=== PATIENT | female | born 1950 | race Caucasian/White ===

== ENCOUNTER 2016-12-10 20:55 | Emergency (ER) | payer OTHER ==
[2016-12-10 21:06] VITALS: BP 136/60; BMI 26.5
[2016-12-10] MEDS ORDERED: TORADOL 60 MG VIAL IM ONE (22:10)
[2016-12-10] MEDS ORDERED: DIFLUCAN PO ONE (22:11)
[2016-12-10] MEDS ORDERED: DIFLUCAN ONE (22:13)
[2016-12-10] MEDS ORDERED: TORADOL 60 MG VIAL ONE (22:13)
--- NOTE | 2016-12-10 22:31 | DR.GENAD ---
HPI - PCP Primary Care Physician: Jose - HPI Comment HPI Comment: SICK FOR 3 WEEKS WITH COUGH AND THRUSH. NYSTATIN IS NOT HELPING MOUTH. COMPLETED ANTIBIOTIC GIVEN BUT STILL HAVE PRODUCTIVE COUGH WITH THICK YELLOW SPUTUM. NO FEVER. MOUTH IS BURNING. - Complaint/Symptoms Chief Complaint Doctors Comments: MOUTH PAIN, COUGH AND CHEST PAIN. Chief Complaint:: "I was on antibiotics for about 2-3 weeks about my tongue. I have had to drink to different medications. Neither has helped. I have also been coughing really bad and yellow stuff is coming up. I still have white on my tongue and throat though. My gums are also really sore." Self Treatment fo Chief Complaint: Prescribed medications that she cannot recall. - Nurses notes reviewed Nurses Notes Review: Yes - Source History Provided: Patient - Mode of Arrival Mode of Arrival: Ambulatory - Timing Onset of Chief Complaint: 11/19/16 Came on: Gradually - Duration Duration: Constant Duration: Weeks - Severity Severity: Moderate PMH - PMH Past Medical History: Yes Past Medical History: Arthritis Past Surgical History: Yes Surgical History: Hysterectomy, Tonsillectomy, Other - Family History History of Family Medical Conditions: No - Social History Does patient currently use any type of tobacco product: Yes Have you used tobacco products in the last 12 months: Yes Type of Tobacco Use: Cigarettes How many years tobacco product used: 40 Does any household member use tobacco: No Alcohol Use: None Do you use any recreational Drugs:: No Lives With: Alone Lives Where: Home - infectious screening In the last 2 months have you had wt loss of >10#?: NO Have you had fever, night sweats or hemotysis?: Yes Have you traveled outside the country in the last 6 months?: No Isolation: Standard ROS - Review of Systems Constitutional: Weakness, Fatigue, Loss of Appetite. negative: Chills, Fever Eyes: No Symptoms Reported. negative: Eye Pain, Discharge ENTM: Ear Pain, Nose Discharge, Nose Congestion, Mouth Pain, Mouth Swelling ( WHITISH LESIONS PRESENT IN MOUTH. PALATE INFLAME.), Throat Pain Respiratoy: Productive Cough, Short of Breath, Wheezing, Hemoptysis Cardiovascular: Chest Pain Gastrointestinal/Abdominal: No Symptoms Reported Genitourinary: No Symptoms Reported Neurological: Headache, Weakness, Dizziness Musculoskeletal: Muscle Pain Integumentary: No Symptoms Reported Hematologic/Lymphatic: No Symptoms Reported Endocrine: No Symptoms Reported All Other Systems: Reviewed and Negative PE - Vital Signs Vitals: Temperature 98.9 F Pulse Rate 73 Respiratory Rate 16 Blood Pressure 136/60 O2 Sat by Pulse Oximetry 97 - General Limitations: No Limitations General Appearance: Alert - Head Head Exam: Normal Inspection - Eyes Eye exam: Normal Appearance - ENT ENT Exam: Normal External Ear Exam, Other (TONGUE, BUCAL MUCOSA AND PALATE INFLAME. GUM INFLAME AND WHITE APPEARING.) TM/Canal Exam: Bilateral Normal Nose Exam: Normal Nose Exam Mouth Exam: Normal Inspection Throat Exam: Normal Inspection - Neck Neck Exam: Trachea Midline - Chest Chest Inspection: Symmetric Chest Wall Rise - Respiratory Respiratory Exam: negative: Chest Wall Tenderness Respiratory Exam: Bilateral Rhonchi, Upper Rhonchi, Lower Rhonchi - Cardiovascular Cardiovascular Exam: Regular Rate, Normal Rhythm, Normal Heart Sounds - Abdominal Exam Abdominal Exam: Normal Bowel Sounds, Soft. negative: Tenderness - Extremities Extremities Exam: Normal Inspection - Back Back Exam: Paraspinal Tenderness - Neurologic Neurological Exam: Alert, Oriented X3, Normal Gait. negative: Motor Sensory Deficit - Psychiatric Psychiatric Exam: Anxious - Skin Skin Exam: Normal Color MDM - Differential Diagnosis Differential Diagnosis: PNEUMONIA, BRONCHITIS, THRUSH, STOMATIS Course - Treatment Treatment: SEE ORDERS - Education/Counseling Education/Counseling: Patient, Education Educated On: Treatment, Diagnosis, Needs for Follow Up ROR - XRAY XRAY Interpreted by: Radiologist XRAY Findings: REPORT DISCUSS WITH PATIENT. - Diagnosis Discharge Problem: Bronchitis, Stomatitis, Thrush - Discharge Plan Disposition: 01 HOME, SELF-CARE Condition: Stable Prescriptions: Fluconazole [Diflucan] 100 mg PO DAILY #7 tab Sulfamethoxazole-Trimethoprim [BACTRIM DS TAB 800/160 MG *] 1 tab PO BID #20 tab - Follow ups/Referrals Follow ups/Referrals: ZHANNA CRUZ [Primary Care Provider] - 2 days - Instructions Instructions: Thrush, Adult, Stomatitis, [id number], Acute Bronchitis Additional Instructions: RETURN TO ED IF WORSE.
--- NOTE | 2016-12-11 01:44 | RAD ---
AP Chest Indication: Cough Comparison: None available Findings: The trachea is midline. The cardiac silhouette is unremarkable. The lungs are clear without focal infiltrate or effusion. The bony thorax is unremarkable. IMPRESSION: 1. No acute cardiopulmonary abnormality. Reported By:
== END 2016-12-10 23:00 | disposition home or self-care (01) ==
LOC: ER 21:16
DX: J40 Bronchitis, not specified as acute or chronic (principal); K12.1 Other forms of stomatitis; B37.89 Other sites of candidiasis
CPT/HCPCS: 71010; 96372; 99282; J1885

== ENCOUNTER → 2017-01-07 | Outpatient (CLI) | payer OTHER ==
[2016-12-10 21:06] VITALS: BP 136/60
[~2017-01-07] MED LIST: NS 100 ML IV 100 ML IV ONE
[2017-01-07 10:30] LABS: CREATININE 0.78 mg/dL (0.55-1.02)
--- NOTE | 2017-01-09 11:47 | CT ---
CTA OF THE ABDOMEN AND PELVIS AND BILATERAL LOWER EXTREMITY RUNOFF WITHOUT AND WITH CONTRAST CLINICAL INDICATION: Atherosclerotic artery disease with claudication TECHNIQUE: Written informed consent was obtained. Non-gated spiral axial images of the lower thorax, abdomen, pelvis and lower extremities were obtained with nonionic intravenous contrast. 3D reconst ructions were performed. Dose reduction techniques including Automated Exposure Control (AEC) and ad justment of mA and kV were utlized. COMPARISON: None. FINDINGS: VASCULAR: Abdominal Aorta: No significant stenosis. Celiac [place]: There is stenosis at the origin of the celiac axis on series 10, image 21 with distal p atency. Superior Mesenteric Artery: No significant stenosis. Renal Arteries: No significant stenosis. Inferior Mesenteric Artery: No significant stenosis. RIGHT PELVIS/LOWER EXTREMITY: Right Common Iliac Artery: No significant stenosis. Right Internal Iliac Artery: No significant stenosis. Right External Iliac Artery: No significant stenosis. Right Common Femoral Artery: No significant stenosis. Right Profunda Femoris Artery: No significant stenosis. Right Superficial Femoral Artery: No significant stenosis. Right Popliteal Artery: No significant stenosis. Right Anterior Tibial Artery: No significant stenosis. Crosses the ankle to supply the dorsalis ped is artery. Right Tibioperoneal Trunk: No significant stenosis. Right Posterior Tibial Artery: Diminutive. Flow to the plantar foot is primarily via the peroneal ar elias. Right Peroneal Artery: No significant stenosis. LEFT PELVIS/LOWER EXTREMITY: Left Common Iliac Artery: No significant stenosis. Left Internal Iliac Artery: No significant stenosis. Left External Iliac Artery: No significant stenosis. Left Common Femoral Artery: No significant stenosis. Left Profunda Femoris Artery: No significant stenosis. Left Superficial Femoral Artery: No significant stenosis. Left Popliteal Artery: No significant stenosis. Left Anterior Tibial Artery: Diminutive. Flow to the dorsal foot is primarily via the peroneal arter y. Left Tibioperoneal Trunk: No significant stenosis. Left Posterior Tibial Artery: No significant stenosis. Crosses the ankle to supply the plantar arch . Left Peroneal Artery: No significant stenosis. Lung bases: The heart is normal in size. There is no pericardial effusion. Lung bases are clear with out focal consolidation, pleural effusion or pneumothorax. Although not optimized to detect pulmonar y embolism, no large central pulmonary emboli are seen. Abdomen without: No gallstones, renal stones or proximal ureteral stones. Abdomen with: Liver and spleen are normal in size, enhancement characteristics and contour. Simple l iver cyst measuring 2.1 cm on series 10, image 28. The portal vein is patent. No ductal dilitation. Gallbladder is present. No gallbladder wall thickening. The pancreas is unremarkable. Adrenal glands are normal. Kidneys enhance symmetrically without hydronephrosis. No bowel obstruction or inflammation. No abnormal appearing mesenteric or retroperitoneal lymph nod es. No free fluid or fluid collections. Pelvis without: No distal ureteral stones or bladder stones. Pelvis with: The bladder is normal in appearance. Uterus and ovaries are absent. No free fluid or a bnormal pelvic lymph nodes. No aggressive osseous lesions. IMPRESSION: 1. No significant stenosis or occlusion of the artery of the lower extremities. 2. 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 Reported By:
== END ==
LOC: RAD 09:52
PROVIDERS: ATTEND Nurse Practitioner Family
DX: I70.213 Atherosclerosis of native arteries of extremities with intermittent claudication, bilateral legs (principal); I73.89 Other specified peripheral vascular diseases
CPT/HCPCS: 36415; 73706; 82565; 84520; A4222

== ENCOUNTER 2017-09-28 15:56 | Observation (INO) | payer OTHER ==
--- NOTE | 2017-09-28 17:54 | DR.H&P ---
H&P - History & Physical for Day of: H&P Date: 09/28/17 - Chief Complaint Chief Complaint: ABDOMINAL PAIN, VOMITING, FEVER - Allergies Allergies/Adverse Reactions: Allergies Allergy/AdvReac Type Severity Reaction Status Date / Time Nalbuphine [From Nubain] Allergy Verified 03/28/14 17:03 MS Penicillin G Allergy Verified 03/28/14 17:02 [Penicillin G] - History of Present Illness History of Present Illness: 67 WF DIRECT ADMIT FROM DR LUNA OFFICE AFTER PRESENTING WITH CO LOWER ABDOMINAL PAIN AND NAUSEA AND VOMITING. PT HAS FEVER IN OFFICE. PT CO CHRONIC CONSTIPATION HAS TAKEN MULTIPLE OTC LAXATIVES WITHOUT BOWEL MOVEMENT. PT HAS HX OF GERD, CHRONIC PAIN, OA, COPD. PLAN TO ADMIT FOR EVALUATION OF PAIN AND NAUSEA. PLAN TO OBTAIN LABS, DIAGNOSTIC TESTING, IV PAIN AND NAUSEA CONTROL. - Past Medical History Past Medical History: Arthritis, COPD, GERD, Headaches - Past Surgical History Surgical History: Hysterectomy, Tonsillectomy, Other - Social History Does patient currently use any type of tobacco product: Yes Have you used tobacco products in the last 12 months: Yes Type of Tobacco Use: Cigarettes Does any household member use tobacco: No Alcohol Use: None Drug Use: None - Review of Systems Constitutional: Fever, Weakness Eyes: No Symptoms Reported ENT: No Symptoms Reported Respiratory: No Symptoms Reported Cardiovascular: No Symptoms Reported Gastrointestinal: Nausea, Vomiting, Abdominal Pain, Constipation Genitourinary: Dysuria, Frequency Musculoskeletal: Back Pain, Leg Pain Skin: No Symptoms Reported Neurological: No Symptoms Reported - Physical Exam Vital Signs: Blood Pressure 136/60 Oriented: Normal Eyes: Normal Ear: Normal Nose: Normal Throat: Normal Respiratory: RLL Diminished, LLL Diminished Cardiovascular: Normal : Normal Auscultation: Bowel Sounds: Normal Palpation: Normal Tenderness: RLQ, LLQ, Suprapubic Skin: Decreased Turgur Musculoskeletal: Back:Lumbar Psychiatric: Normal Mood Description: Calm Affect: Anxious Speech Pattern: Clear, Appropriate - Assessment/Plan (1) Abdominal pain Status: Acute Plan: ADMIT, ADMISSION LABS CBC CMP AMYLASE LIPASE H PYLOR. OCCULT STOOL, ABD SERIES. UA/UC. NPO, CT SCAN Q AM (2) Fever Status: Acute (3) Nausea & vomiting Status: Acute
[2017-09-28] MEDS ORDERED: PEPCID 20 MG IV PREMIX* 20 MG/50 ML BAG IV PRN (18:38)
[2017-09-28] MEDS ORDERED: MORPHINE SULFATE INJ 2 MG INJ IVP PRN (18:38)
[2017-09-28] MEDS ORDERED: ZOFRAN INJ 4 MG VIAL IVP PRN (18:38)
[2017-09-28] MEDS ORDERED: PHENERGAN INJ 25 MG IVP PRN (18:38)
[2017-09-28 19:38] LABS: BILIRUBIN,URINE NEGATIVE (NEGATIVE); BLOOD/HEMOGLOBIN,URINE NEGATIVE (NEGATIVE); GLUCOSE, URINE NEGATIVE (NEGATIVE); KETONES,URINE NEGATIVE (NEGATIVE); LEUKOCYTE ESTERASE ,URINE NEGATIVE (NEGATIVE); NITRITES,URINE NEGATIVE (NEGATIVE); PROTEIN,URINE NEGATIVE (NEGATIVE); UROBILINOGEN,URINE NORMAL (NORMAL)
[2017-09-28 19:46] LABS: APPEARANCE,URINE CLEAR (CLEAR); BACTERIA,URINE NEGATIVE /HPF (NEGATIVE); COLOR,URINE YELLOW (YELLOW); RBC,URINE NEGATIVE /HPF (NEGATIVE); SQUAMOUS EPITHELIAL CELL,UR RARE /HPF (NEGATIVE)
[2017-09-28 20:31] VITALS: BMI 24.5
--- NOTE | 2017-09-28 21:00 | RAD ---
Acute abdominal series: Indication: Abdominal pain, vomiting, fever. Comparison: None available. Technique: Four views of the chest and abdomen provided. Findings: Lungs are clear without focal consolidation. No pneumothorax or pleural effusion. Cardiac s ilhouette is within normal limits. There is a large amount of retained stool. No evidence of small-aster wel obstruction. No organomegaly seen. Surgical change at L5-S1 noted. No acute skeletal abnormality is seen. Impression: 1. No acute cardiopulmonary abnormality. 2. Large amount of retained stool, as seen with constipation. Reported By:
[2017-09-28] MEDS: NICOTINE PATCH TD SCH (21:01)
[2017-09-28] MEDS: NS 1000 ML 1,000 ML IV SCH (21:01)
[2017-09-28] MEDS: COLACE CAP 100 MG PO SCH (22:10)
[2017-09-28] MEDS: PERCOCET TAB 5/325 MG PO PRN (22:11)
[2017-09-28] MEDS: MILK OF MAGNESIA PO SCH (22:11)
[2017-09-28] MEDS: CHECK PATCH XX SCH (22:17)
[2017-09-29 06:13] LABS: BASOPHILS % (AUTO) 0.8 % (0.2-1.0); EOSINOPHILS # (AUTO) 0.1 x10^3/uL (0.0-0.2); EOSINOPHILS % (AUTO) 1.8 % (0.9-2.9); HEMOGLOBIN 11.7 g/dL (12.0-16.0); LYMPHOCYTES # (AUTO) 2.2 X10^3/uL (1.3-2.9); LYMPHOCYTES % (AUTO) 50.9 % (21.0-51.0); MEAN CORPUSCULAR HEMOGLOBIN 31.7 pg (27.0-34.0); MEAN CORPUSCULAR HGB CONC 34.4 g/dL (33.0-35.0); MEAN CORPUSCULAR VOLUME 92.1 fL (80.0-100.0); MEAN PLATELET VOLUME 7.5 fL (7.4-11.0); MONOCYTES # (AUTO) 0.4 x10^3/uL (0.3-0.8); MONOCYTES % (AUTO) 8.2 % (0.0-13.0); NEUTROPHILS # (AUTO) 1.7 x10^3/uL (2.2-4.8); NEUTROPHILS % (AUTO) 38.3 % (42.0-75.0); PLATELET COUNT 142 X10^3/uL (150.0-450.0); RED CELL DISTRIBUTION WIDTH 13.6 % (11.6-16.5); WHITE BLOOD COUNT 4.4 X10^3/uL (3.6-10.0)
[2017-09-29 06:42] LABS: ALANINE AMINOTRANSFERASE 21 Units/L (12-78); ALKALINE PHOSPHATASE 40 Units/L (46-116); ASPARTATE AMINO TRANSFERASE 24 Units/L (15-37); BLOOD UREA NITROGEN 9 mg/dL (7-18); CALCIUM 8.4 mg/dL (8.5-10.1); CARBON DIOXIDE 35.1 mmol/L (21-32); CHLORIDE 108 mmol/L (98-107); COR CA(FOR HYPOALB) 9.2 mg/dL (8.5-10.1); CREATININE 0.63 mg/dL (0.55-1.02); SODIUM 144 mmol/L (136-145); TOTAL PROTEIN 5.8 g/dL (6.4-8.2); eGFR BLACK RACES > 60 (>60); eGFR NON BLACK RACES > 60 (>60)
[2017-09-29] MEDS: PERCOCET TAB 5/325 MG PO PRN ×2 (08:11→13:14)
[2017-09-29] MEDS: MILK OF MAGNESIA PO SCH ×2 (08:11→20:03)
[2017-09-29] MEDS: NICOTINE PATCH TD SCH ×2 (08:11→21:31)
[2017-09-29] MEDS: NS 1000 ML 1,000 ML IV SCH ×3 (08:16→20:04)
[2017-09-29] MEDS ORDERED: FLEET ENEMA ADULT PR ONE (08:25)
[2017-09-29] MEDS ORDERED: DULCOLAX SUPPOSITORY 10 MG RECTAL ONE (08:25)
[2017-09-29] MEDS ORDERED: DURAGESIC 75 mcg/HR PATCH TD SCH (10:00)
[2017-09-29] MEDS: CHECK PATCH XX SCH ×2 (10:11→20:02)
[2017-09-29] MEDS: PERCOCET TAB 5/325 MG PO SCH ×3 (13:16→20:04)
--- NOTE | 2017-09-29 13:49 | PCM.PROG ---
Progress Note - Progress Note for Day of Date: 09/29/17 - Subjective Subjective: co severe nausea and soria this am. pt npo for ct scan. pt continues to co left abdominal pain. reviewed abdomen series with pt, dulcolax and enema ordered for constipation. continue home meds and repeat am labs - Past Medical Family Social History Past Med/Fam/Surg Hx: No changes since H&P Allergies: Allergies nalbuphine [From Nubain] Adverse Reaction (Verified 09/28/17 20:37) Penicillins Adverse Reaction (Verified 09/28/17 20:37) - Review of Systems ROS: No change since H&P - Vital Signs and I&O's Vital Signs: Temperature 98.2 F Pulse Rate [Left Brachial] 80 Respiratory Rate 20 Blood Pressure [Left Arm] 122/58 Blood Pressure 136/60 O2 Sat by Pulse Oximetry 92 Intake and Output: Intake & Output 09/27/17 09/28/17 09/29/17 09/30/17 11:59 11:59 11:59 11:59 Intake Total 1050 Balance 1050 - Physical Exam Oriented: Normal Eyes: Normal Ear: Normal Nose: Normal Throat: Normal Respiratory: Diminished Cardiovascular: Normal : Normal Auscultation: Bowel Sounds: Decreased Tenderness: RLQ, LLQ, Suprapubic Skin: Decreased Turgur Musculoskeletal: Back:Lumbar Psychiatric: Normal Mood Description: Calm Affect: Anxious Speech Pattern: Clear, Appropriate - Laboratory and Diagnostics Result Diagrams: 09/29/17 05:05 09/29/17 05:05 Labs: 09/28/17 19:29 Urine,Clean Catch Urine Culture - Preliminary Laboratory WBC 4.4 X10^3/uL (3.6-10.0) 09/29/17 05:05 RBC 3.70 X10^6/uL (3.5-5.4) 09/29/17 05:05 Hgb 11.7 g/dL (12.0-16.0) L 09/29/17 05:05 Hct 34.0 % (36.0-47.0) L 09/29/17 05:05 MCV 92.1 fL (80.0-100.0) 09/29/17 05:05 MCH 31.7 pg (27.0-34.0) 09/29/17 05:05 MCHC 34.4 g/dL (33.0-35.0) 09/29/17 05:05 RDW 13.6 % (11.6-16.5) 09/29/17 05:05 Plt Count 142 X10^3/uL (150.0-450.0) L 09/29/17 05:05 MPV 7.5 fL (7.4-11.0) 09/29/17 05:05 Neut % 38.3 % (42.0-75.0) L 09/29/17 05:05 Lymph % 50.9 % (21.0-51.0) 09/29/17 05:05 [place] % 8.2 % (0.0-13.0) 09/29/17 05:05 Eos % 1.8 % (0.9-2.9) 09/29/17 05:05 Baso % 0.8 % (0.2-1.0) 09/29/17 05:05 Neut # 1.7 x10^3/uL (2.2-4.8) L 09/29/17 05:05 Lymph # 2.2 X10^3/uL (1.3-2.9) 09/29/17 05:05 [place] # 0.4 x10^3/uL (0.3-0.8) 09/29/17 05:05 Eos # 0.1 x10^3/uL (0.0-0.2) 09/29/17 05:05 Baso # 0.0 X10^3/uL (0.0-0.1) 09/29/17 05:05 Absolute Nucleated RBC 0.0 /100WBC 09/29/17 05:05 Sodium 144 mmol/L (136-145) 09/29/17 05:05 Corrected Sodium TNP 09/29/17 05:05 Potassium 4.1 mmol/L (3.5-5.1) 09/29/17 05:05 Chloride 108 mmol/L (98-107) H 09/29/17 05:05 Carbon Dioxide 35.1 mmol/L (21-32) H 09/29/17 05:05 BUN 9 mg/dL (7-18) 09/29/17 05:05 Creatinine 0.63 mg/dL (0.55-1.02) 09/29/17 05:05 Est GFR (MDRD) Af Amer > 60 (>60) 09/29/17 05:05 Est GFR (MDRD) Non-Af > 60 (>60) 09/29/17 05:05 Glucose 91 mg/dL (65-99) 09/29/17 05:05 Calcium 8.4 mg/dL (8.5-10.1) L 09/29/17 05:05 Corrected Calcium 9.2 mg/dL (8.5-10.1) 09/29/17 05:05 Total Bilirubin 0.20 mg/dL (0.2-1.0) 09/29/17 05:05 AST 24 Units/L (15-37) 09/29/17 05:05 ALT 21 Units/L (12-78) 09/29/17 05:05 Alkaline Phosphatase 40 Units/L (46-116) L 09/29/17 05:05 Total Protein 5.8 g/dL (6.4-8.2) L 09/29/17 05:05 Albumin 3.0 g/dL (3.4-5.0) L 09/29/17 05:05 Globulin 2.8 g/dL (2.5-4.5) 09/29/17 05:05 Albumin/Globulin Ratio 1.1 Ratio (1.1-2.1) 09/29/17 05:05 Specimen Type Clean catch urine 09/28/17 19: Urine Color Yellow (YELLOW) 09/28/17 19: Urine Appearance Clear (CLEAR) 09/28/17 19: Urine pH 6.0 (5.0 - 8.0) 09/28/17 19: Ur Specific [place] 1.015 (1.000-1.030) 09/28/17 19: Urine Protein Negative (NEGATIVE) 09/28/17 19: Urine Glucose (UA) Negative (NEGATIVE) 09/28/17 19: Urine Ketones Negative (NEGATIVE) 09/28/17 19: Urine Occult Blood Negative (NEGATIVE) 09/28/17 19: Urine Nitrite Negative (NEGATIVE) 09/28/17 19: Urine Bilirubin Negative (NEGATIVE) 09/28/17 19: Urine Urobilinogen Normal (NORMAL) 09/28/17 19: Ur Leukocyte Esterase Negative (NEGATIVE) 01/15/18 19:29 Urine RBC Negative /HPF (NEGATIVE) 09/28/17 19:29 Urine WBC Rare /HPF (NEGATIVE) 09/28/17 19:29 Ur Squamous Epith Cells Rare /HPF (NEGATIVE) 09/28/17 19:29 Urine Bacteria Negative /HPF (NEGATIVE) 09/28/17 19:29 Ur Culture Indicated? Yes/culture set up 09/28/17 19:29 H. pylori IgG Antibody Negative (NEGATIVE) 09/28/17 18:53 - Plan (1) Abdominal pain Status: Acute Plan: ADMISSION LABS CBC CMP AMYLASE LIPASE H PYLOR. OCCULT STOOL, ABD SERIES. UA/UC. NPO, CT SCAN THIS AM. TREATMENT OF CONSTIPATION (2) Fever Status: Acute (3) Nausea & vomiting Status: Acute
--- NOTE | 2017-09-29 14:25 | CT ---
CT abdomen and pelvis with contrast Indication: Abdominal pain, fever and vomiting Technique: Helical images through the abdomen and pelvis after IV and oral contrast. Coronal and sagi ttal reformats provided. Comparison: Abdominal radiograph from 09/28/17 reviewed. Findings: Limited images through the lower chest demonstrates minimal dependent atelectasis and scarr ing without acute abnormality. Review of bone windows demonstrates spine and pelvis degenerative agarwal ge without destructive osseous lesion. Abdomen: Hepatic hypodensity in the right lobe of the liver on axial image 30 is compatible with a cy st. Other tiny hepatic hypodensities are probably cysts. The spleen, pancreas and adrenal glands appe ar normal. Few renal hypodensities are most compatible with cysts, without other acute abnormality se en. Vascular calcifications noted. Contrast passes distally without obstruction. Noninflamed colonic diverticulum noted. The appendix is not identify, with prior appendectomy surgical history given. The stomach and small bowel are normal. Common bile duct is prominent and there is intrahepatic biliary dilatation as well. The gallbladder is mildly distended. Question soft tissue density versus stone or stricture in the distal common bile plafond axial image 33 and coronal image 21. Pancreas duct is no t dilated. Pelvis: The urinary bladder and rectum are normal. Uterus is absent. No adnexal region lesions seen. Impression: 1. Prominent biliary tree with questionable stricture, lesion or stone in the distal common bile duct . ERCP follow-up should be considered versus MRCP. Correlate with hepatic biochemical profile. 2. Spine degenerative change, vascular plaque, noninflamed colonic diverticulosis and other findings as above. Reported By:
[2017-09-29 16:22] LABS: CRYPTOSPORIDIUM PARVUM ANTIGEN NEGATIVE (NEGATIVE); GIARDIA LAMBLIA ANTIGEN NEGATIVE (NEGATIVE)
[2017-09-29 16:24] LABS: STOOL FOR WBC NEGATIVE (NEGATIVE)
[2017-09-29] MEDS: XANAX PO SCH (20:00)
[2017-09-29] MEDS: COLACE CAP 100 MG PO SCH (20:03)
[2017-09-29] MEDS ORDERED: LIORESAL PO SCH (21:00)
[2017-09-29] MEDS ORDERED: ELAVIL PO SCH (21:00)
[2017-09-29] MEDS ORDERED: MILNACIPRAN HCL 25 MG PO SCH (21:00)
[2017-09-29] MEDS ORDERED: DESYREL PO SCH (21:00)
[2017-09-29] MEDS: PATIENT'S HOME MEDICATION PO SCH (21:30)
[2017-09-30 05:18] LABS: BASOPHILS % (AUTO) 0.9 % (0.2-1.0); EOSINOPHILS % (AUTO) 1.2 % (0.9-2.9); HEMATOCRIT 32.3 % (36.0-47.0); HEMOGLOBIN 11.2 g/dL (12.0-16.0); LYMPHOCYTES # (AUTO) 1.9 X10^3/uL (1.3-2.9); LYMPHOCYTES % (AUTO) 45.5 % (21.0-51.0); MEAN CORPUSCULAR HEMOGLOBIN 31.6 pg (27.0-34.0); MEAN CORPUSCULAR HGB CONC 34.5 g/dL (33.0-35.0); MEAN CORPUSCULAR VOLUME 91.5 fL (80.0-100.0); MEAN PLATELET VOLUME 7.3 fL (7.4-11.0); MONOCYTES # (AUTO) 0.3 x10^3/uL (0.3-0.8); MONOCYTES % (AUTO) 7.9 % (0.0-13.0); NEUTROPHILS # (AUTO) 1.8 x10^3/uL (2.2-4.8); NEUTROPHILS % (AUTO) 44.5 % (42.0-75.0); PLATELET COUNT 137 X10^3/uL (150.0-450.0); RED BLOOD COUNT 3.53 X10^6/uL (3.5-5.4); RED CELL DISTRIBUTION WIDTH 13.3 % (11.6-16.5); WHITE BLOOD COUNT 4.1 X10^3/uL (3.6-10.0)
[2017-09-30 05:25] LABS: ALANINE AMINOTRANSFERASE 18 Units/L (12-78); ALBUMIN 2.6 g/dL (3.4-5.0); ALKALINE PHOSPHATASE 36 Units/L (46-116); ASPARTATE AMINO TRANSFERASE 20 Units/L (15-37); BLOOD UREA NITROGEN 7 mg/dL (7-18); CARBON DIOXIDE 29.4 mmol/L (21-32); CHLORIDE 109 mmol/L (98-107); COR CA(FOR HYPOALB) 9.1 mg/dL (8.5-10.1); CREATININE 0.45 mg/dL (0.55-1.02); SODIUM 143 mmol/L (136-145); TOTAL PROTEIN 5.2 g/dL (6.4-8.2); eGFR BLACK RACES > 60 (>60); eGFR NON BLACK RACES > 60 (>60)
[2017-09-30] MEDS: NS 1000 ML 1,000 ML IV SCH ×2 (06:18→10:06)
[2017-09-30] MEDS ORDERED: SYNTHROID 100 mcg TAB PO SCH (07:00)
[2017-09-30] MEDS: PERCOCET TAB 5/325 MG PO PRN (08:57)
[2017-09-30] MEDS: PATIENT'S HOME MEDICATION PO SCH (08:58)
[2017-09-30] MEDS: XANAX PO SCH (08:59)
[2017-09-30] MEDS: NICOTINE PATCH TD SCH (08:59)
[2017-09-30] MEDS ORDERED: NexIUM PO SCH (09:00)
[2017-09-30] MEDS: CHECK PATCH XX SCH (09:00)
[2017-09-30] MEDS: MILK OF MAGNESIA PO SCH (09:00)
[2017-09-30] MEDS ORDERED: PRAVACHOL PO SCH (09:00)
[2017-09-30] MEDS ORDERED: MAGIC MOUTHWASH MT PRN (09:16)
[2017-09-30] MEDS: ZITHROMAX INJ 500 MG VIAL 500 MG in NS 250 ML IV 250 ML IV SCH ×2 (10:06→10:07)
--- NOTE | 2017-09-30 10:31 | RAD ---
HISTORY: Abdominal pain, fever vomiting Study: KUB Comparison: 09/28/2017 Findings: The bowel gas pattern is nonspecific. There is no radiographic evidence to suggest obstruction. Resid ual contrast is present within the colon. No pathologic calcification is identified. The bony structu res are grossly intact. IMPRESSION: 1. Nonspecific bowel gas pattern without radiographic evidence of obstruction Reported By:
[2017-09-30 15:14] VITALS: BP 142/83
== END 2017-09-30 14:05 | disposition home or self-care (01) ==
LOC: MED/SURG 15:56
PROVIDERS: ADMIT Internal Medicine; ATTEND Internal Medicine
DX: R10.32 Left lower quadrant pain (principal); R11.2 Nausea with vomiting, unspecified; K59.09 Other constipation; K21.9 Gastro-esophageal reflux disease without esophagitis; J44.9 Chronic obstructive pulmonary disease, unspecified; R51 Headache; M13.89 Other specified arthritis, multiple sites; A04.5 Campylobacter enteritis; R26.89 Other abnormalities of gait and mobility
CPT/HCPCS: 36415; 74018; 74022; 74177; 80053; 81001; 82270; 83630; 85025; 86677; 87045; 87086; 87328; 87329; 87336; 87427; 87493; 87899; A4216; A4222; G8978; G8979; S0028; G0378; J0456; J2405; J2550

== ENCOUNTER → 2018-02-09 | Outpatient (CLI) | payer OTHER ==
--- NOTE | 2018-02-09 12:52 | US ---
HISTORY: Right upper quadrant pain. Study: Gallbladder ultrasound: Multiplanar ultrasonographic examination of the gallbladder was perf ormed. Comparison: CT scan 09/29/2017 Findings: On the images submitted to me the liver is of mildly increased echogenicity consistent with mild fatt y infiltration. There is a cyst present within the right lobe of the liver measuring approximately 1 9 mm in maximum dimension. Vascular flow appears normal. The gallbladder demonstrates what appears to be a minimal amount of sludge and possibly a tiny non sh adowing gallstone. I see no evidence of pericholecystic fluid or gallbladder wall thickening. Commo n bile duct is normal at 3 mm. The pancreas as visualized is normal. The right kidney is slightly small, most likely normal for age. It measures 8.3 cm in length by 4.6 x 5.3 cm. IMPRESSION: 1. There appears to be probable minimal sludge and possibly a tiny non shadowing gallstone in the re gion of the gallbladder neck. I see no evidence of pericholecystic fluid, gallbladder wall thickenin g or biliary duct dilatation. 2. The right kidney is slightly small, most likely normal for age. 3. There is what appears to be a simple hepatic cyst measuring 19 mm in maximum dimension. 4. Mild fatty infiltration of the liver. Reported By:
== END ==
LOC: RAD 08:57
PROVIDERS: ATTEND Nurse Practitioner Family
DX: R10.11 Right upper quadrant pain (principal)
CPT/HCPCS: 76705